=== PATIENT | female | born 1965 | race African-American/Black ===

== ENCOUNTER 2016-06-07 10:14 | Emergency (ER) | payer OTHER ==
[~2016-06-07] VITALS: Ht 162.6 cm; Wt 100.0 kg
[~2016-06-07 10:14] MED LIST: CIPR500T2 PO; LORTA5 PO; LOVA20TA PO; METF1000 PO; WALKER ROLLING
[2016-06-07 10:16] VITALS: BP 140/81; PULSE 89; RESP 18; TEMP 98; O2SAT 98
[2016-06-07] MEDS ORDERED: KETOROLAC TROMETHAMINE 60 MG/2 ML (IM) VIAL IM ONE (11:30)
[2016-06-07] MEDS ORDERED: ORPHENADRINE INJ 60 MG/2 ML AMP IM ONE (11:30)
--- NOTE | 2016-06-07 11:30 | PD ---
HPI Chief Complaint: Back/ Neck Pain or Injury Time Seen by Provider: 11:30 Travel History International Travel<30 days: No Contact w/Intl Traveler<30days: No Traveled to known affect area: No History of Present Illness HPI 50-year-old female presents to the emergency Department with complaint of chronic thoracic back pain that exacerbated yesterday. She has had similar back pain for multiple years. Denies injury, fall, strain. Denies paresthesias , loss of sensation, decreased range of motion, decreased strength to all extremities. Pain is aggravated with movement and walking. Denies IV drug use. Denies cancer. Denies encopresis, incontinence, saddle anesthesias. Denies fever, chills, nausea, vomiting. Patient reports urinary urgency and frequency. Denies dysuria, hematuria. Back pain radiates around to the right side. Has tried ibuprofen with some good relief of pain. No known allergies. History of diabetes and high cholesterol. No other modifying factors or associated signs and symptoms. PFSH Past Medical History Arthritis: No Asthma: No Anxiety: No Depression: No Heart Rhythm Problems: No Cancer: No Cardiovascular Problems: No High Cholesterol: Yes Chemotherapy: No Chest Pain: No Congestive Heart Failure: No COPD: No Cerebrovascular Accident: No Diabetes: Yes Diminished Hearing: No Endocrine: Yes GERD: Yes Genitourinary: No Hiatal Hernia: No Musculoskeletal: No Neurologic: No Psychiatric: No Reproductive: No Respiratory: No Migraines: No Radiation Therapy: No Seizures: No Sickle Cell Disease: No Sleep Apnea: No Ulcer: No ?: Not LMP: MENOPAUSE Menopausal: Yes : 4 Para: 4 Tubal Ligation: Yes Past Surgical History Abdominal Surgery: Yes (TUBAL LIGATION) AICD: No Arteriovenous Shunt: No Cardiac Surgery: No Ear Surgery: No Endocrine Surgery: No Eye Surgery: No Genitourinary Surgery: No Gynecologic Surgery: Yes (TUBAL LIGATION) Insulin Pump: No Joint Replacement: No Oral Surgery: No Pacemaker: No Thoracic Surgery: No Other Surgery: Yes (chest tube) Social History Alcohol Use: No Tobacco Use: No Substance Use: No Allergies-Medications (Allergen,Severity, Reaction): Coded Allergies: No Known Allergies (Verified , 02/22/14) Reported Meds & Prescriptions Reported Meds & Active Scripts Active Robaxin (Methocarbamol) 500 Mg Tab 500 Mg PO QID PRN Ibuprofen 800 Mg Tab 800 Mg PO Q6HR PRN Keflex (Cephalexin) 500 Mg Cap 500 Mg PO Q12H 7 Days Lovastatin 20 Mg Tab 20 Mg PO HS Metformin (Metformin HCl) 1,000 Mg Tab 1,000 Mg PO BID Review of Systems Except as stated in HPI: all other systems reviewed are Neg Physical Exam Narrative GENERAL: Well-nourished, well-developed female patient, in no acute distress; afebrile, nontoxic-appearing SKIN: Warm and dry. HEAD: Atraumatic. Normocephalic. EYES: Pupils equal and round. No scleral icterus. No injection or drainage. ENT: Mucosa pink and moist. Airway patent. NECK: Trachea midline. CARDIOVASCULAR: Regular rate and rhythm. No murmur appreciated. RESPIRATORY: No accessory muscle use. Breath sounds clear and equal bilaterally. No retractions or tachypnea. GASTROINTESTINAL: Abdomen soft, non-tender, nondistended. Positive bowel sounds. No hepato-splenomegaly, or palpable masses. No guarding. MUSCULOSKELETAL: Bilateral lower extremities supple and non-tense with 2+ pedal pulses and sensory intact; with full range of motion and 5/5 strength. Ambulatory with normal gait. Sitting up in bed at 90. No obvious deformities. No clubbing. No cyanosis. No edema. BACK: No CVA tenderness. No midline point tenderness on palpation of the lumbar or thoracic spine. Tenderness on palpation of right thoracic musculature area. No obvious deformities. NEUROLOGICAL: Awake and alert. Oriented 3. No obvious cranial nerve deficits. Motor grossly within normal limits. Normal speech. Moves all extremities. 5/5 strength to all extremities. Sensory intact. PSYCHIATRIC: Appropriate mood and affect; insight and judgment normal. Data Data Last Documented VS Vital Signs Date Time Temp Pulse Resp B/P Pulse Ox O2 Delivery O2 Flow Rate FiO2 06/07/16 10:16 98.0 89 18 140/81 98 Orders Ketorolac Inj (Toradol Inj) (06/07/16 11:30) Orphenadrine Inj (Norflex Inj) (06/07/16 11:30) Urinalysis - C+S If Indicated (06/07/16 11:29) Labs Laboratory Tests Test 06/07/16 11:35 Urine Color YELLOW Urine Turbidity CLEAR Urine pH 7.0 Urine Specific [place] 1.022 Urine Protein TRACE mg/dL Urine Glucose (UA) 70 mg/dL Urine Ketones NEG mg/dL Urine Occult Blood NEG Urine Nitrite NEG Urine Bilirubin NEG Urine Urobilinogen 2.0 MG/DL Urine Leukocyte Esterase SMALL Urine RBC 1 /hpf Urine WBC 3 /hpf Urine Squamous Epithelial <1 /hpf Cells Urine Renal Epithelial Cells <1 /hpf Urine Bacteria RARE /hpf Urine Mucus FEW /lpf Microscopic Urinalysis Comment CULT NOT INDICATED MDM Medical Decision Making Medical Screen Exam Complete: Yes Emergency Medical Condition: Yes Medical Record Reviewed: Yes Differential Diagnosis Acute exacerbation of chronic thoracic back pain, UTI, pyelonephritis Narrative Course 50-year-old female with history of chronic thoracic back pain for multiple years with recent exacerbation that started yesterday. Denies injury, fall, strain. Patient is complaining of urinary urgency and frequency. No CVA tenderness on exam. Urinalysis ordered. Toradol and Norflex ordered. 1202: Urinalysis with leukocyte esterase. I will prescribe Keflex secondary to symptom complaint. Keflex, ibuprofen, Robaxin prescribed for home. Patient is medically cleared and stable for discharge. Discussed reasons to return to the emergency department. Instructed patient to follow up with primary care provider. Patient agrees with treatment plan. The patients vital signs are stable and the patient is stable for outpatient follow-up and treatment. Patient discharged home, stable and in no acute distress. Diagnosis Primary Impression: Chronic thoracic back pain Qualified Code: M54.6 - Chronic right-sided thoracic back pain Additional Impression: UTI (urinary tract infection) Qualified Code: N30.00 - Acute cystitis without hematuria Referrals: Primary Care Physician Patient Instructions: Chronic Back Pain (ED), General Instructions, Urinary Tract Infection in Women (ED) Departure Forms: Tests/Procedures, Work Release Enter return to work date: Jun 10, 2016 Additional Instructions: Tylenol or ibuprofen as directed and as needed for pain Robaxin as prescribed and as needed for muscle spasms Heating pad and/or ice to affected area to reduce pain Avoid aggravating activities; increase activity as tolerated Follow-up with primary care provider Return to emergency department immediately with worsening of symptoms Take antibiotics as prescribed and complete full course Drink plenty of fluids Maintain good personal hygiene Follow-up with primary care provider Return to the emergency department immediately with worsening of symptoms Med/Other Pt SpecificInfo: Prescription(s) given Scripts Methocarbamol (Robaxin)500 Mg [id number] Mg PO QID PRN (MUSCLE SPASM) #30 TAB Ref 0 Prov:Rassi,Mitzi K ROVING SIZER 06/07/16 Ibuprofen 800 Mg Bgi346 Mg PO Q6HR PRN (PAIN) #30 TAB Ref 0 Prov:Mitzi Schaffer 06/07/16 Cephalexin (Keflex)500 Mg Qtw605 Mg PO Q12H 7 Days Ref 0 Prov:Mitzi Schaffer 06/07/16 Disposition: 01 DISCHARGE HOME Condition: Stable Mitzi Schaffer Jun 07, 2016 11:30
[2016-06-07 11:57] LABS: BACTERIA, URINE RARE /hpf; BLOOD, URINE NEG (NEG); GLUCOSE,URINE 70 mg/dL (NEG); KETONE, URINE NEG (NEG); MUCUS URINE FEW /lpf (OCC); NITRITE,URINE NEG (NEG); RENAL EPITHELIAL CELLS <1 /hpf; SQUAMOUS EPITHELIAL CELL URINE <1 /hpf (0-5); URINE COLOR YELLOW (YELLW/STRAW)
[2016-06-07 11:58] LABS: COMMENT (UR) CULT NOT INDICATED; CULTURE IF INDICATED CULT NOT INDICATED
[2016-06-07] MEDS ORDERED: CEPH-460 PO (12:07)
[2016-06-07] MEDS ORDERED: ROBA500T PO (12:07)
[2016-06-07] MEDS ORDERED: IBUP800T23 PO (12:07)
== END 2016-06-07 12:30 | disposition home or self-care (01) ==
LOC: NEPB 10:14
DX: M54.6 Pain in thoracic spine (principal); N39.0 Urinary tract infection, site not specified; E78.00 Pure hypercholesterolemia, unspecified; E11.9 Type 2 diabetes mellitus without complications; K21.9 Gastro-esophageal reflux disease without esophagitis; Z79.84 Long term (current) use of oral hypoglycemic drugs
CPT/HCPCS: 81001; 96372; 99283; J1885; J2360

== ENCOUNTER 2016-10-27 17:32 | Emergency (ER) | payer OTHER ==
[~2016-10-27 17:32] MED LIST changes: +CEPH-460 PO; -CIPR500T2 PO; +IBUP800T23 PO; -LORTA5 PO; +ROBA500T PO; -WALKER ROLLING
[2016-10-27 17:34] VITALS: BP 129/93; PULSE 82; RESP 15; TEMP 98.5; O2SAT 98
--- NOTE | 2016-10-27 17:56 | PD ---
Physical Exam Date Seen by Provider: Oct 27, 2016 Time Seen by Provider: 17:54 Narrative 51 yo female here for sharp right sided chest pain x today. Has never had this before. Radiates to the shoulder and right arm. Pain is 6/10. Sharp. Nothing makes it better. No injury. Gets worst with deep breaths and laugh. Vitals are stable in triage. Awaiting Bed placement. Data Data Last Documented VS Vital Signs Date Time Temp Pulse Resp B/P Pulse Ox O2 Delivery O2 Flow Rate FiO2 10/27/16 17:34 98.5 82 15 129/93 98 MDM Medical Record Reviewed: Yes Supervised Visit with [facility]: No Bennie Roper Oct 27, 2016 17:55
[2016-10-27] MEDS ORDERED: METF1000 PO (18:20)
[2016-10-27] MEDS ORDERED: SODIUM CHLORIDE 0.9% FLUSH 10 ML FLUSH IVF PRN (18:30)
[2016-10-27] MEDS ORDERED: ASPIRIN 81 MG CHEW TAB PO ONE (18:30)
--- NOTE | 2016-10-27 19:03 | RADRPT ---
EXAM DATE/TIME: 10/27/2016 18:28 [facility] COMPARISON: CHEST SINGLE AP, November 10, 2014, 15:37. INDICATIONS : Right side chest pain. MEDICAL HISTORY : None. SURGICAL HISTORY : None. ENCOUNTER: Initial ACUITY: 4 - 6 days PAIN SCORE: 6/10 LOCATION: Right chest FINDINGS: A single view of the chest demonstrates the lungs to be symmetrically aerated without evidence of mas s, infiltrate or effusion. The cardiomediastinal contours are unremarkable. Old right-sided rib frac tures. A scoliotic and degenerative spine. CONCLUSION: No acute disease. Aneesh Beasley Jr., MD on October 27, 2016 at 19:01 Board Certified Radiologist. This report was verified electronically.
--- NOTE | 2016-10-27 19:03 | PD ---
HPI . Right shoulder pain Chief Complaint: Chest Pain Time Seen by Provider: 18:23 Travel History International Travel<30 days: No Contact w/Intl Traveler<30days: No Traveled to known affect area: No History of Present Illness HPI This patient presents with right shoulder pain. She states that it is a sharp pain which is exacerbated by movement. Pain is rated 6/10. Advil helps some. Patient reports that the pain has been present "for a while." She states that she has not taken anything for it today. She reports no other symptoms. PFSH Past Medical History Arthritis: No Asthma: No Anxiety: No Depression: No Heart Rhythm Problems: No Cancer: No Cardiovascular Problems: No High Cholesterol: Yes Chemotherapy: No Chest Pain: No Congestive Heart Failure: No COPD: No Cerebrovascular Accident: No Diabetes: Yes (METFORMIN 0700 10/27/16) Patient Takes Glucophage: Yes Diminished Hearing: No Endocrine: Yes GERD: Yes Genitourinary: No Hiatal Hernia: No Musculoskeletal: No Neurologic: No Psychiatric: No Reproductive: No Respiratory: No Migraines: No Radiation Therapy: No Seizures: No Sickle Cell Disease: No Sleep Apnea: No Ulcer: No ?: Not Menopausal: Yes : 4 Para: 4 Tubal Ligation: Yes Past Surgical History Abdominal Surgery: Yes (TUBAL LIGATION) AICD: No Arteriovenous Shunt: No Cardiac Surgery: No Ear Surgery: No Endocrine Surgery: No Eye Surgery: No Genitourinary Surgery: No Gynecologic Surgery: Yes (TUBAL LIGATION) Insulin Pump: No Joint Replacement: No Oral Surgery: No Pacemaker: No Thoracic Surgery: No Other Surgery: Yes (chest tube) Social History Alcohol Use: Yes (occasional) Tobacco Use: No Substance Use: No Allergies-Medications (Allergen,Severity, Reaction): Coded Allergies: No Known Allergies (Verified , 02/22/14) Reported Meds & Prescriptions Reported Meds & Active Scripts Active Reported Metformin (Metformin HCl) 1,000 Mg Tab 1,000 Mg PO BIDPC With meals Review of Systems Except as stated in HPI: all other systems reviewed are Neg Musculoskeletal: Positive: Myalgias Physical Exam Narrative GENERAL: Awake and alert and in no acute distress. SKIN: Warm and dry. HEAD: Atraumatic. Normocephalic. EYES: Pupils equal and round. Extraocular movements are intact. ENT: No nasal bleeding or discharge. Mucous membranes pink and moist. NECK: Trachea midline. Neck is supple. CARDIOVASCULAR: Regular rate and rhythm. Heart sounds are normal. RESPIRATORY: No accessory muscle use. Lungs are clear with full air movement throughout. GASTROINTESTINAL: Abdomen soft, non-tender, nondistended. MUSCULOSKELETAL: No obvious deformities. No edema. She is point tender at the insertion of the right pectoralis muscle. Her pain is exacerbated by movement of this muscle. NEUROLOGICAL: Awake and alert. No obvious cranial nerve deficits. Motor grossly within normal limits. Normal speech. PSYCHIATRIC: Appropriate mood and affect; insight and judgment normal. Data Data Last Documented VS Vital Signs Date Time Temp Pulse Resp B/P Pulse Ox O2 Delivery O2 Flow Rate FiO2 10/27/16 19:43 83 20 142/76 98 Room Air 10/27/16 17:34 98.5 Orders Electrocardiogram (10/27/16 ) Basic Metabolic Panel (Bmp) (10/27/16 18:27) Ckmb (Isoenzyme) Profile (10/27/16 18:27) Complete Blood Count With Diff (10/27/16 18:27) Troponin I (10/27/16 18:27) Chest, Single Ap (10/27/16 18:27) Ecg Monitoring (10/27/16 18:27) Iv Access Insert/Monitor (10/27/16 18:27) Oximetry (10/27/16 18:27) Aspirin Chew (Aspirin Chew) (10/27/16 18:30) Sodium Chloride 0.9% Flush (Ns Flush) (10/27/16 18:30) Acetamin-Hydrocod 325-5 Mg ([place] 5-325 (10/27/16 19:15) Labs Laboratory Tests Test 10/27/16 18:55 White Blood Count 8.5 TH/MM3 Red Blood Count 4.98 MIL/MM3 Hemoglobin 13.1 GM/DL Hematocrit 40.6 % Mean Corpuscular Volume 81.5 FL Mean Corpuscular Hemoglobin 26.3 PG Mean Corpuscular Hemoglobin 32.3 % Concent Red Cell Distribution Width 13.7 % Platelet Count 271 TH/MM3 Mean Platelet Volume 8.8 FL Neutrophils (%) (Auto) 60.8 % Lymphocytes (%) (Auto) 30.3 % Monocytes (%) (Auto) 6.7 % Eosinophils (%) (Auto) 1.7 % Basophils (%) (Auto) 0.5 % Neutrophils # (Auto) 5.2 TH/MM3 Lymphocytes # (Auto) 2.6 TH/MM3 Monocytes # (Auto) 0.6 TH/MM3 Eosinophils # (Auto) 0.1 TH/MM3 Basophils # (Auto) 0.0 TH/MM3 CBC Comment DIFF FINAL Differential Comment Sodium Level 137 MEQ/L Potassium Level 4.1 MEQ/L Chloride Level 102 MEQ/L Carbon Dioxide Level 25.0 MEQ/L Anion Gap 10 MEQ/L Blood Urea Nitrogen 17 MG/DL Creatinine 0.75 MG/DL Estimat Glomerular Filtration 98 ML/MIN Rate Random Glucose 277 MG/DL Calcium Level 9.3 MG/DL Total Creatine Kinase 98 U/L Troponin I LESS THAN 0.02 NG/ML MDM Medical Decision Making Medical Screen Exam Complete: Yes Emergency Medical Condition: Yes Interpretation(s) EKG shows a normal sinus rhythm with no acute ischemic change. Her EKG is unchanged from previous. Differential Diagnosis Differential diagnosis of chest pain includes but is not limited to musculoskeletal pain, pulmonary embolism, acute coronary syndrome, pneumonia, pleurisy Narrative Course This patient presents with right-sided chest pain which is actually more in the right shoulder. It is pretty clearly musculoskeletal. Last Impressions Chest X-Ray 10/27/161826 Signed Impressions: Service Date/Time: Thursday, October 27, 2016 18:28 - CONCLUSION: No acute disease. Aneesh Beasley Jr., MD CBC & BMP Diagram 10/27/16 18:55 Cardiac enzymes are negative. This patient will be discharged home on ibuprofen, Ultram and Flexeril. Diagnosis Primary Impression: Strain of right pectoralis muscle Qualified Code: S29.011A - Strain of right pectoralis muscle, initial encounter Patient Instructions: General Instructions, Muscle Strain (DC) Med/Other Pt SpecificInfo: Prescription(s) given Scripts Tramadol (Ultram)50 Mg Tab50 Mg PO Q4H PRN (PAIN) #12 TAB Ref 0 Prov:Natali Muhammad MD 10/27/16 Cyclobenzaprine (Flexeril)10 Mg Tab10 Mg PO TID #30 TAB Ref 0 Prov:Natali Muhammad MD 10/27/16 Ibuprofen 800 Mg [id number] Mg PO Q6HR PRN (PAIN) #30 TAB Ref 0 Prov:Natali Muhammad MD 7/11/17 Disposition: 01 DISCHARGE HOME Condition: Stable Natali Muhammad MD Oct 27, 2016 19:03
[2016-10-27] MEDS ORDERED: ACETAMINOPHEN/HYDROcodone 325 MG/5 MG TAB PO ONE (19:15)
[2016-10-27 19:23] LABS: AUTOMATED NEUTROPHIL # 5.2 TH/MM3 (1.8-7.7); BASOPHIL % 0.5 % (0.0-2.0); EOSINOPHIL # 0.1 TH/MM3 (0-0.4); EOSINOPHIL % 1.7 % (0.0-4.0); HEMATOCRIT 40.6 % (35.0-46.0); HEMO FLAGS DIFF FINAL; LYMPH % 30.3 % (9.0-44.0); LYMPHOCYTE # 2.6 TH/MM3 (1.0-4.8); MEAN CELL VOLUME 81.5 FL (80.0-100.0); MEAN CORPUSCULAR HEMOGLOBIN 26.3 PG (27.0-34.0); MEAN CORPUSCULAR HGB CONC 32.3 % (32.0-36.0); MONO % 6.7 % (0.0-8.0); NEUT % 60.8 % (16.0-70.0); PLATELET COUNT 271 TH/MM3 (150-450); RED BLOOD COUNT 4.98 MIL/MM3 (4.00-5.30); RED CELL DISTRIBUTION WIDTH 13.7 % (11.6-17.2); WHITE BLOOD COUNT 8.5 TH/MM3 (4.0-11.0)
[2016-10-27 19:43] VITALS: BP 142/76; PULSE 83; RESP 20; O2SAT 98
[2016-10-27 19:44] LABS: ANION GAP 10 MEQ/L (5-15); BLOOD UREA NITROGEN 17 MG/DL (7-18); CHLORIDE 102 MEQ/L (98-107); CREATINE KINASE 98 U/L (26-192); GLOMERULAR FILTRATION RATE 98 ML/MIN (>89); POTASSIUM 4.1 MEQ/L (3.5-5.1); SODIUM (NA) 137 MEQ/L (136-145)
[2016-10-27] MEDS ORDERED: CYCL1TAB29 PO (19:52)
[2016-10-27] MEDS ORDERED: ULTR50TA5 PO (19:52)
[2016-10-27] MEDS ORDERED: IBUP800T23 PO (19:52)
[2016-10-27 20:02] VITALS: BP 120/77
--- NOTE | 2016-10-27 21:39 | EKG ---
Date Performed: 10/27/2016 Time Performed: 18:23:36 PTAGE: 51 years EKG: Sinus rhythm NORMAL ECG PREVIOUS TRACING : 11/10/2014 13.58 Compared to prior tracing no significant change DOCTOR: Goyo Mojica Interpretating Date/Time 10/27/2016 21:38:13
== END 2016-10-27 20:49 | disposition home or self-care (01) ==
LOC: NEPD 17:32
DX: S29.011A Strain of muscle and tendon of front wall of thorax, initial encounter (principal); M25.511 Pain in right shoulder; X58.XXXA Exposure to other specified factors, initial encounter
CPT/HCPCS: 71010; 80048; 82550; 84484; 85025; 93005; 99285

== ENCOUNTER 2017-02-24 11:03 | Emergency (ER) | payer SELFPAY ==
[~2017-02-24] VITALS: Ht 162.6 cm; Wt 100.0 kg
[~2017-02-24 11:03] MED LIST changes: -CEPH-460 PO; +CYCL10TA PO; +IBUP1TAB7 PO; -IBUP800T23 PO; -LOVA20TA PO; -ROBA500T PO; +TRAM50 PO
[2017-02-24 11:05] VITALS: BP 135/90; PULSE 99; RESP 20; TEMP 98.6; O2SAT 98
--- NOTE | 2017-02-24 11:24 | PD ---
HPI Chief Complaint: Musculoskeletal Complaint Time Seen by Provider: 11:22 Travel History International Travel<30 days: No Contact w/Intl Traveler<30days: No Traveled to known affect area: No History of Present Illness HPI This is a 51-year-old female who presents for evaluation of right arm pain. Symptoms have been going on for several months. The pain is primarily localized in the right forearm region but she occasionally has pain in her right shoulder as well. She does not recall any injuries. The pain is a sharp pain that seems to be worse with some movements occasionally but sometimes it comes on spontaneously. She denies any chest pain, shortness of breath, acute trauma. She has no other complaints at this time. History Past Medical Histgory Menopausal: Yes Hx Cancer: No Hx Chemotherapy: No Hx Radiation Therapy: No Social History Alcohol Use: Yes (occasional) Tobacco Use: No Allergies-Medications (Allergen,Severity, Reaction): Coded Allergies: No Known Allergies (Verified , 02/22/14) Reported Meds & Prescriptions Reported Meds & Active Scripts Active Ultram (Tramadol HCl) 50 Mg Tab 50 Mg PO Q4H PRN Flexeril (Cyclobenzaprine HCl) 10 Mg Tab 10 Mg PO TID Ibuprofen 800 Mg Tab 800 Mg PO Q6HR PRN Reported Metformin (Metformin HCl) 1,000 Mg Tab 1,000 Mg PO BIDPC With meals Review of Systems Cardiovascular: No: Chest Pain or Discomfort Respiratory: No: Shortness of Breath Musculoskeletal: Positive: Pain, No: Limited ROM Skin: Positive Other (no bruising or soft tissue swelling) Physical Exam Narrative GENERAL: Well-developed well-nourished female in no acute distress SKIN: Warm and dry. HEAD: Atraumatic. Normocephalic. EYES: Pupils equal and round. No scleral icterus. No injection or drainage. ENT: No nasal bleeding or discharge. Mucous membranes pink and moist. NECK: Trachea midline. No JVD. CARDIOVASCULAR: Regular rate and rhythm. No murmur appreciated. RESPIRATORY: No accessory muscle use. Clear to auscultation. Breath sounds equal bilaterally. GASTROINTESTINAL: Abdomen soft, non-tender, nondistended. Hepatic and splenic margins not palpable. MUSCULOSKELETAL: No obvious deformities. No clubbing. No cyanosis. No edema. Normal muscle strength in the upper extremities NEUROLOGICAL: Awake and alert. No obvious cranial nerve deficits. Motor grossly within normal limits. Normal speech. PSYCHIATRIC: Appropriate mood and affect; insight and judgment normal. Data Data Last Documented VS Vital Signs Date Time Temp Pulse Resp B/P (MAP) Pulse Ox O2 Delivery O2 Flow Rate FiO2 02/24/17 11:05 98.6 99 20 135/90 (105) 98 Room Air MDM Medical Screen Exam Complete: Yes Emergency Medical Condition: No Narrative Course This patient has been expressing intermittent pains in her right arm for the past several months. Physical examination is wholly unremarkable. A medical screening exam was performed: At the time of evaluation the presenting medical condition was determined not to be of an emergent nature. The patient was given the option of receiving additional care, but declined. Patient was given options for additional community resources from which to obtain care. The Patient Has Been advised to seek medical attention for their presenting complaint. The patient has been advised to return to the ER at any time if an emergent condition develops. Primary Impression: Encounter for medical screening examination Fazal Molina Feb 24, 2017 11:24
== END 2017-02-24 11:32 | disposition left against medical advice (07) ==
LOC: NEPK 11:03
DX: M79.601 Pain in right arm (principal)
CPT/HCPCS: 99281